=== PATIENT | female | born 1970 | race Caucasian/White ===

== ENCOUNTER 2016-08-23 08:01 | Emergency (ER) | payer OTHER ==
[2016-08-23 08:27] LABS: Hematocrit 37.2 % (37.0-47.0); Hemoglobin 12.6 gm/dL (12.5-16.0); Mean Cell Volume 88.4 fl (78-100); Mean Corpuscular Hemoglobin 29.9 pg (27-31); Mean Corpuscular Hgb Conc 33.9 g/dl (32-36); Mean Platelet Volume 8.6 fl (6.0-9.5); Neutrophil # 4.3 K/mm3 (1.3-6.0); Neutrophil % 55.5 % (42-75.0); Platelet Count 334 K/mm3 (150-450); Red Blood Count 4.21 M/mm3 (4.2-5.4); Red Cell Distribution Width 13.6 % (11.5-14.0); White Blood Count 7.7 K/mm3 (4.0-10.5)
[2016-08-23 08:35] LABS: INR 0.95 INR (0.90-1.10); Partial Thrombolplastin Time 27.5 Seconds (24-32); Prothrombin Time (Patient) 9.9 Seconds (9.4-11.4)
[2016-08-23 08:43] LABS: ALT 22 U/L (19-67); AST 18 U/L (0-48); Albumin * 3.6 gm/dl (3.4-5.0); Alkaline Phosphatase * 71 U/L (50-170); Anion Gap 12.7 mmol/L (6.8-13.8); BUN/Creatinine Ratio 10.4 (9.0-21.6); Bilirubin, Total 0.2 mg/dL (0.0-1.1); Blood Urea Nitrogen 7 mg/dL (3-23); Ca. Corrected For Albumin 8.8 mg/dL (8.4-10.2); Calcium * 8.8 mg/dL (7.9-10.9); Carbon Dioxide 26.9 mmol/L (24-32.6); Chloride 102 mmol/L (97-106); Glucose * 95 mg/dL (70-110); Potassium 3.6 mmol/L (3.4-4.6); Sodium 138 mmol/L (132-142); Troponin I Less than 0.017 ng/ml (0.00-0.10)
[2016-08-23] MEDS ORDERED: ALBUTEROL SULFATE 2.5 MG/3 ML VIAL.NEB IH ONE (09:03)
[2016-08-23] MEDS ORDERED: ALBUTEROL SULFATE 2.5 MG/0.5 ML VIAL.NEB IH ONE (09:03)
--- NOTE | 2016-08-23 09:13 | ERNOTE ---
Chest Pain/Cardiac HPI Chief Complaint: Chest Pain Time Seen by Provider: 08/23/16 08:55 Source: patient Exam Limitations: no limitations Immunizations: IMMUNIZATION HX Immunizations Up to Date Yes History of Influenza Vaccine No Hx Pneumococcal Vaccination No Allergies/Adverse Reactions: Allergies No Known Allergies Allergy (Verified 08/23/16 08:16) Home Medications: HOME MEDICATIONS Atorvastatin Calcium [Lipitor] 20 mg PO DAILY 08/23/16 [Last Taken Unknown] Budesonide/Formoterol Fumarate [Symbicort 80-4.5 Mcg Inhaler] 10.2 gm IH BID 10/02 [Last Taken Unknown] Citalopram Hydrobromide [Citalopram HBr] 40 mg PO DAILY 08/23/16 [Last Taken Unknown] Codeine Phosphate/Guaifenesin [Codeine-Guaifen 10-100 mg/5 ml] 19 ml PO Q4H PRN #120 liquid 08/23/16 [Last Taken Unknown] Fenofibrate [Fenoglide] 48 mg PO DAILY 08/23/16 [Last Taken Unknown] Levothyroxine Sodium [Levo-T] 75 mcg PO DAILY 08/23/16 [Last Taken Unknown] Montelukast Sodium [Singulair] 10 mg PO QPM 08/23/16 [Last Taken Unknown] Omeprazole 40 mg PO DAILY 08/23/16 [Last Taken Unknown] Narrative: Patient has had chest pain for two days. She only has pain with deep breath and coughing, currently none, some shortness of breath with activity. She is a smoker and was diagnosed with a 'mild case of COPD' about a year ago. She has inhaler but doesn't use them consistently. Date (Duration): 08/21/16 Timing: intermittent Severity/Quality: moderate, pressure Location: central Chest Pain Radiation: no radiation Modifying Factors - Worsens: Present: breathing, coughing Nitro Today/Relief: no nitro taken today Aspirin Treatment Today: no aspirin today Review of Systems - Review of Systems Constitutional: Absent: recent illness, fever ENT: Present: sore throat - initially, no resolved. Absent: ear pain, nose congestion, nasal drainage Respiratory: Present: See HPI, cough - with green sputum Cardiology: Present: See HPI Gastrointestinal/Abdominal: Absent: nausea, vomiting, diarrhea, abdominal pain Genitourinary: Present: no symptoms reported Musculoskeletal: Present: no symptoms reported Neurological: Absent: headache - Patient's Past Medical History Patient History - Medical: Depression, GERD, Hypothyroidism Patient History - Cardiac/Respiratory: Asthma, COPD, Hyperlipidemia Patient History - Cancer: No Hx of Cancer Patient History - Surgical Procedures: Tubal Ligation, Other, ENT Patient History - Other: None LMP (females 10-50): unknown - Social History Living Situations: home Abuse History: No History of abuse Psych History: Hx of Depression, Current tx/ever been on anti-depressants or anti-anxiety meds Smoking Status: Current every day smoker Have you smoked in the past 12 months: Yes Alcohol Use: rarely Drug Use: none - Immunizations Immunizations Up to Date: Yes Hx Pneumococcal Vaccination: No History of Influenza Vaccine: No Physical Exam - Physical Exam General Appearance: Present: wd/wn, alert, no apparent distress Eye Exam: Normal inspection: bilateral, PERRL: bilateral Ears, Nose, Throat: Present: normal ENT inspection, normal pharynx Neck: Present: normal inspection Respiratory: Present: no respiratory distress, no accessory muscle use, lungs clear, chest tenderness - parasternal bilateral, decreased breath sounds Cardiovascular/Chest: Present: regular rate, rhythm, no murmur Gastrointestinal/Abdominal: Present: normal bowel sounds, nontender, nondistended, soft Extremity Exam: Present: no edema Neurological Exam: Present: alert, oriented, normal mood/affect Skin Exam: Present: normal color, warm/dry ED Progress - Results and Orders Patient's Lab Results:: I have reviewed the patient's lab results. - Vital Signs Patient's Vital Signs:: I have reviewed the patient's vital signs. Vital Signs: Vital Signs 08/23/16 08/23/16 08/23/16 08:08 08:17 08:51 Temperature 36.5 C Pulse Rate 78 76 95 Respiratory 17 13 Rate Blood Pressure 133/71 119/67 O2 Sat by Pulse 98 Oximetry - EKG EKG: NSR, no ST T wave changes EKG read: Interp. by me - X-Ray X-Ray #1 X-Ray: chest - no acute changes Interpretation: Reviewed by me - Progress/Reassessment Chief Complaint: Chest Pain Progress Note-Subjective: 08/23/16 09:30 feeling better after albuterol neb treatment, discussed limitations of test to rule out CAD though bronchitis and chest wall pain are more likely diagnosis, offered admission for chest pain, patient would like to go home Departure - Departure Clinical Impression: Bronchitis Disposition: Home self-care Condition: Good Instructions: Acute Bronchitis Additional Instructions: use your inhalers as prescribed try the mucinex again call your doctor for follow up Prescriptions: Codeine Phosphate/Guaifenesin [Codeine-Guaifen 10-100 mg/5 ml] 19 ml PO Q4H PRN #120 liquid PRN Reason: Cough
[2016-08-23 09:29] VITALS: BP 132/20
== END 2016-08-23 09:45 | disposition home or self-care (01) ==
LOC: ER 08:01
DX: J20.9 Acute bronchitis, unspecified (principal); Z72.0 Tobacco use; K21.9 Gastro-esophageal reflux disease without esophagitis; E03.9 Hypothyroidism, unspecified; J44.9 Chronic obstructive pulmonary disease, unspecified; E78.5 Hyperlipidemia, unspecified; F32.89 Other specified depressive episodes